=== PATIENT | female | born 1985 | race Caucasian/White ===

== ENCOUNTER 2025-03-15 12:09 | Emergency (ER) | payer OTHER ==
[2025-03-15 12:19] VITALS: BP 111/74; PULSE 84; RESP 18; TEMP 98; BMI 27.2
[2025-03-15] MEDS ORDERED: KETOROLAC TROMETHAMINE 30 MG/1 ML VIAL ONE ×2 (13:35)
[2025-03-15] MEDS ORDERED: METHOCARBAMOL 500 MG TABLET ONE (13:35)
[2025-03-15] MEDS ORDERED: ACETAMINOPHEN 500 MG TABLET (FP) ONE (13:35)
[2025-03-15] MEDS ORDERED: LIDOCAINE 5% TOPICAL PATCH ONE (13:36)
[2025-03-15] MEDS: KETOROLAC TROMETHAMINE 30 MG/1 ML VIAL IM ONE (13:50)
[2025-03-15] MEDS: LIDOCAINE 5% TOPICAL PATCH TP ONE (13:50)
[2025-03-15] MEDS: METHOCARBAMOL 500 MG TABLET PO ONE (13:51)
[2025-03-15] MEDS: ACETAMINOPHEN 1000 MG/100 ML BAG IVPB ONE (13:51)
[2025-03-15] MEDS: ACETAMINOPHEN 500 MG TABLET (FP) PO ONE (13:52)
[2025-03-15] MEDS ORDERED: LIDOCAINE PATCH REMOVAL MC ONE (22:00)
== END 2025-03-15 14:52 | disposition home or self-care (01) ==
LOC: JERFT 12:09
PROC: 3E0233Z Introduction of Anti-inflammatory into Muscle, Percutaneous Approach (ICD-10-PCS; principal; 2025-03-15)
DX: M54.50 Low back pain, unspecified (principal)
CPT/HCPCS: 72100-TC-FY; 99284-25

== ENCOUNTER 2025-09-13 10:08 | Inpatient (IN) | payer OTHER ==
[2025-09-13] MEDS ORDERED: ACETAMINOPHEN INJECTION 100 ML ONE (11:04)
[2025-09-13] MEDS ORDERED: ONDANSETRON 4 MG/2 ML VIAL ONE (11:05)
[2025-09-13] MEDS: ACETAMINOPHEN 1000 MG/100 ML BAG IVPB ONE (11:35)
[2025-09-13] MEDS: ONDANSETRON 4 MG/2 ML VIAL IVPUSH ONE (11:36)
[2025-09-13] MEDS ORDERED: CEFTRIAXONE 1 GM/50 ML BAG ONE (11:41)
[2025-09-13 11:47] LABS: BG HCT 33.0 % (32.4-45.2); VENOUS BASE EXCESS -1.3 mmol/L (-2-2); VENOUS O2 SATURATION 64.7 % (70-80); VENOUS PCO2 34.9 mmHg (38-52); VENOUS PH 7.428 (7.310-7.410)
[2025-09-13 11:56] LABS: MCHC 32.9 g/dl (32.2-35.5); MEAN CELL VOLUME 88.6 fl (79.4-94.8); MEAN PLT VOLUME 10.7 fl (9.4-12.3); RDW 14.4 % (12.1-16.8)
[2025-09-13 12:05] LABS: INR 1.3 (0.83-1.09); PROTHROMBIN TIME (PATIENT) 14.2 SEC (9.7-13.0)
[2025-09-13 12:07] LABS: ACTIVATED PTT 27.8 SECONDS (25.2-36.5)
[2025-09-13 12:16] LABS: GLUCOSE,RANDOM 101.0 mg/dL (74-106); TOT PROT 6.4 g/dl (6.4-8.2)
[2025-09-13 12:17] LABS: CO2 21.0 mmol/L (21-32)
[2025-09-13 12:19] LABS: ALK PHOS 140.0 U/L (40-150)
[2025-09-13 12:22] LABS: CREATININE 0.87 mg/dL (0.55-1.3); SGOT/AST 103.0 U/L (5-34); SGPT/ALT 152.0 U/L (0-55)
[2025-09-13 12:43] LABS: HCV DIAGNOSTIC IN-HOUSE W/RFLX NON-REACTIVE (NONREACTIVE); HIV INTERPRETATION NEGATIVE (NEGATIVE)
[2025-09-13] MEDS: LACTATED RINGERS SOLUTION 1000 ML INFUS.BAG IV ONE (15:22)
[2025-09-13] MEDS ORDERED: KETOROLAC TROMETHAMINE 15 MG/ML VIAL ONE (16:16)
[2025-09-13] MEDS: KETOROLAC TROMETHAMINE 15 MG/ML VIAL IVPUSH ONE (16:22)
[2025-09-13 17:06] LABS: URINE APPEARANCE TURBID; URINE BILIRUBIN NEGATIVE (NEGATIVE); URINE COLOR YELLOW; URINE GLUCOSE (UA) NEGATIVE (NEGATIVE); URINE KETONE 1+ (NEGATIVE)
[2025-09-13 17:07] LABS: URINE LEUK ESTERASE 2+ (NEGATIVE); URINE NITRITE POSITIVE (NEGATIVE); URINE PROTEIN 2+ (NEGATIVE); URINE UROBILINOGEN 1.0 mg/dL (0.2-1.0)
[2025-09-13 17:08] LABS: EPI CELLS 18.9 /uL (0-25.1); HYALINE CASTS 0.38 /uL (0-3.1); URINE BACTERIA 9296.4 /uL (0-1359); URINE RBC 181 /uL (0-23.9); URINE WBC 9490 /uL (0-25.8)
[2025-09-13] MEDS ORDERED: MORPHINE SULFATE 2 MG/ML SYRINGE IVPUSH PRN (17:28)
[2025-09-13] MEDS ORDERED: ACETAMINOPHEN 500 MG TABLET (FP) PO PRN (20:51)
[2025-09-13] MEDS: KETOROLAC TROMETHAMINE 15 MG/ML VIAL IVPUSH PRN (21:31)
[2025-09-13] MEDS: MELATONIN 1 MG TABLET PO SCH (21:31)
[2025-09-13] MEDS: SODIUM CHLORIDE 1,000 ML IV SCH (21:34)
[2025-09-14 07:07] LABS: MCHC 32.0 g/dl (32.2-35.5); MEAN CELL VOLUME 88.4 fl (79.4-94.8); MEAN PLT VOLUME 10.3 fl (9.4-12.3); RDW 14.6 % (12.1-16.8)
[2025-09-14 07:37] LABS: GLUCOSE,RANDOM 132.0 mg/dL (74-106); TOT PROT 5.8 g/dl (6.4-8.2)
[2025-09-14 07:38] LABS: CO2 25.0 mmol/L (21-32)
[2025-09-14 07:40] LABS: ALK PHOS 124.0 U/L (40-150)
[2025-09-14 07:43] LABS: CREATININE 0.89 mg/dL (0.55-1.3); SGOT/AST 145.0 U/L (5-34); SGPT/ALT 158.0 U/L (0-55)
[2025-09-14] MEDS: ENOXAPARIN NA (PORCINE) 40 MG/0.4 ML DISP.SYRIN SQ SCH (09:45)
[2025-09-14] MEDS: CEFTRIAXONE 1 GM in DEXTROSE 5%-WATER - 50 ML IVPB SCH (09:45)
[2025-09-14] MEDS: ACETAMINOPHEN/CAFFEINE/BUTALBITAL 1 TAB PO ONE (10:52)
[2025-09-14] MEDS: LACTATED RINGERS SOLUTION 1,000 ML/1,000 ML INFUS.BAG IV SCH (10:53)
[2025-09-14] MEDS: MULTIVITAMINS (DAILY MVI) TABLET (FP) PO SCH (10:53)
[2025-09-14 14:14] VITALS: BMI 19.9
[2025-09-14] MEDS: SODIUM CHLORIDE 1,000 ML IV STA (18:41)
[2025-09-14] MEDS: IBUPROFEN 400 MG TABLET (FP) PO PRN (18:44)
[2025-09-14] MEDS: MEROPENEM 1 GM in DEXTROSE 5%-WATER 100 ML IVPB SCH (19:15)
[2025-09-15 07:38] LABS: ABSOLUTE IMMATURE GRANULOCYTES 0.08 x10^3/uL (0.0-0.031); BASOPHILS # 0.03 x10^3/uL (0.01-0.08); EOSINOPHIL % 0.4 % (0.7-5.8); EOSINOPHILS # 0.04 x10^3/uL (0.04-0.36); MCHC 31.8 g/dl (32.2-35.5); MEAN CELL VOLUME 90.9 fl (79.4-94.8); MEAN PLT VOLUME 11.0 fl (9.4-12.3); MONOCYTE # 0.83 x10^3/uL (0.24-0.86); MONOCYTE % 9.1 % (4.7-12.5); RDW 14.9 % (12.1-16.8)
[2025-09-15 08:18] LABS: HEP A VIRUS IGM NON-REACTIVE (NONREACTIVE); HEPATITIS A VIRUS IgG II REACTIVE (NONREACTIVE)
[2025-09-15 08:42] LABS: GLUCOSE,RANDOM 86.0 mg/dL (74-106); TOT PROT 6.2 g/dl (6.4-8.2)
[2025-09-15 08:43] LABS: CO2 24.0 mmol/L (21-32)
[2025-09-15 08:45] LABS: ALK PHOS 162.0 U/L (40-150)
[2025-09-15 08:47] LABS: SGPT/ALT 274.0 U/L (0-55)
[2025-09-15 08:48] LABS: CREATININE 0.68 mg/dL (0.55-1.3); SGOT/AST 259.0 U/L (5-34)
[2025-09-15 09:51] LABS: IRON SERUM 24.0 ug/dL (50-175)
[2025-09-15] MEDS: IRON SUCROSE INJECTION 200 MG in SODIUM CHLORIDE 100 ML IVPB ONE (12:42)
[2025-09-15] MEDS: IBUPROFEN 400 MG TABLET (FP) PO PRN (12:43)
[2025-09-15] MEDS: POLYETHYLENE GLYCOL (HEALTHYLAX) 3350 17 GM PACKET PO SCH (14:38)
[2025-09-15] MEDS ORDERED: morphine CARPU-JECT 2 MG/1 ML DISP.SYRIN IVPUSH PRN (15:46)
[2025-09-15] MEDS: ACETAMINOPHEN/CAFFEINE/BUTALBITAL 1 TAB PO ONE (16:09)
[2025-09-15] MEDS: DOCUSATE SODIUM 100 MG CAPSULE (FP) PO SCH (18:18)
[2025-09-16 08:28] LABS: MCHC 32.6 g/dl (32.2-35.5); MEAN CELL VOLUME 87.2 fl (79.4-94.8); MEAN PLT VOLUME 11.1 fl (9.4-12.3); RDW 14.7 % (12.1-16.8)
[2025-09-16 09:02] LABS: GLUCOSE,RANDOM 95.0 mg/dL (74-106); TOT PROT 6.0 g/dl (6.4-8.2)
[2025-09-16 09:04] LABS: CO2 28.0 mmol/L (21-32)
[2025-09-16 09:05] LABS: ALK PHOS 181.0 U/L (40-150)
[2025-09-16 09:08] LABS: CREATININE 0.67 mg/dL (0.55-1.3); SGOT/AST 160.0 U/L (5-34); SGPT/ALT 247.0 U/L (0-55)
[2025-09-16 09:16] LABS: HEPATITIS B SURF AG NON-MATERN NON-REACTIVE (NONREACTIVE)
[2025-09-16] MEDS: ACETAMINOPHEN/CAFFEINE/BUTALBITAL 1 TAB PO PRN (15:40)
[2025-09-17 06:46] LABS: MCHC 32.5 g/dl (32.2-35.5); MEAN CELL VOLUME 87.1 fl (79.4-94.8); MEAN PLT VOLUME 10.8 fl (9.4-12.3); RDW 14.4 % (12.1-16.8)
[2025-09-17 06:49] LABS: GLUCOSE,RANDOM 92.0 mg/dL (74-106); TOT PROT 5.6 g/dl (6.4-8.2)
[2025-09-17 06:50] LABS: CO2 28.0 mmol/L (21-32)
[2025-09-17 06:52] LABS: ALK PHOS 153.0 U/L (40-150)
[2025-09-17 06:54] LABS: SGPT/ALT 179.0 U/L (0-55)
[2025-09-17 06:55] LABS: CREATININE 0.65 mg/dL (0.55-1.3); SGOT/AST 78.0 U/L (5-34)
[2025-09-17 09:19] VITALS: BP 119/77; PULSE 87; RESP 16; TEMP 98.1
== END 2025-09-17 11:58 | disposition home or self-care (01) | DRG 720 ==
LOC: JER 10:08 → JERBED 15:28 → J8W 20:55 → OBSVTOIN 09-14 12:13
PROVIDERS: ADMIT Student in an Organized Health Care Education/Training Program; ATTEND Nurse Practitioner Acute Care
DX: A41.89 Other specified sepsis (principal); K71.9 Toxic liver disease, unspecified; K82.4 Cholesterolosis of gallbladder; N39.0 Urinary tract infection, site not specified; T39.1X1A Poisoning by 4-Aminophenol derivatives, accidental (unintentional), initial encounter; R74.01 Elevation of levels of liver transaminase levels; G43.909 Migraine, unspecified, not intractable, without status migrainosus; R01.1 Cardiac murmur, unspecified; N12 Tubulo-interstitial nephritis, not specified as acute or chronic; B96.20 Unspecified Escherichia coli [E. coli] as the cause of diseases classified elsewhere; R16.0 Hepatomegaly, not elsewhere classified; D64.9 Anemia, unspecified
CPT/HCPCS: 36415; 71045-TC-FY; 74177-TC; 74181-TC; 76705-TC; 80053; 80076; 80307; 81003; 82550; 82607; 82728; 82746; 82803; 82977; 83540; 83550; 83605; 83735; 84100; 84484; 84703; 85025; 85027; 85610; 85730; 86140; 86704; 86708; 86803; 86850; 86900; 86901; 87040; 87086; 87340; 87389; 87517; 87522; 87637-QW; 93005; 93010; 99285-25; G0378; J1756